=== PATIENT | male | born 1985 | race Native Hawaiian/Other Pacific Islander ===

== ENCOUNTER 2018-12-11 11:38 | Emergency (ER) | payer BC ==
[2018-12-11 11:48] VITALS: BMI 23.7
[2018-12-11 11:50] VITALS: BP 116/78; RESP 16; TEMP 98.1
--- NOTE | 2018-12-11 13:40 | RAD ---
Date of service: 12/11/2018 PROCEDURE: Radiographs of the chest and bilateral ribs HISTORY: fall, pain to ribs COMPARISON: None available. TECHNIQUE: Frontal radiograph of the chest and multiple oblique radiographs of the bilateral ribs were obtained. 5 views obtained. FINDINGS: RIGHT RIBS: No fracture or focal lesion visualized. LEFT RIBS: No fracture or focal lesion visualized. LUNGS: No acute pulmonary disease identified bilaterally. PLEURA: No pneumothorax or pleural fluid. CARDIOVASCULAR: Normal cardiac size. No pulmonary vascular congestion. No aortic atherosclerotic calcification present OTHER FINDINGS: Trace emphysema is question at the mid left chest wall soft tissues. Clinically correlate. No retained radiodense foreign body identified. IMPRESSION: Unremarkable radiographs of the chest and bilateral ribs. Questionable trace left chest wall emphysema. No rib fracture.
--- NOTE | 2018-12-11 14:05 | ED PDOC ---
HPI: Trauma/Fall - HPI Time Seen by Provider: 12/11/18 12:01 Chief Complaint (Nursing): Trauma Chief Complaint (Provider): fall/ left rib cage History Per: Patient History/Exam Limitations: no limitations Onset/Duration Of Symptoms: Hrs Injury Occurred (Timing): Today @ (11:00) Location Of Injury: Left: Chest (left sided rib cage pain) Severity: Moderate Pain Scale Rating Of: 7 Additional History Per: Patient Additional Complaint(s): 33 year old male with no medical history presents to the ED c/o left sided rib cage pain falling while playing tennis. Patient states he was turning to left and slipped landing on left side of the body. Pain is worse with movement to left rib cage. Denies pain to left shoulder or arm. Patient reports difficulty with deep inspiration He states he took 2 advils at 11:15a prior to arrival. - Fall Fall:Prior To Injury: Slipped Past Medical History Reviewed: Historical Data, Nursing Documentation, Vital Signs Vital Signs: Last Vital Signs Temp 98.1 F 12/11/18 11:48 Pulse 74 12/11/18 11:48 Resp 16 12/11/18 11:48 BP 116/78 12/11/18 11:48 Pulse Ox 97 12/11/18 11:48 Primary Care Provider: Eamon Rudd - Medical History PMH: No Chronic Diseases - Surgical History Surgical History: No Surg Hx - Family History Family History: States: Unknown Family Hx - Living Arrangements Living Arrangements: With Family - Social History Alcohol: None Drugs: Denies - Home Medications Home Medications: Ambulatory Orders Medication Instructions Recorded Cyclobenzaprine [Cyclobenzaprine 10 mg PO Q8H PRN #10 tab 12/11/18 HCl] Ibuprofen [Motrin Tab] 800 mg PO Q8H PRN #30 tab 12/11/18 Lidocaine 5% [Lidoderm] 1 ea TD Q12H PRN #10 patch 12/11/18 - Allergies Allergies/Adverse Reactions: Allergies Allergy/AdvReac Type Severity Reaction Status Date / Time No Known Allergies Allergy Verified 12/11/18 12:38 Review of Systems ROS Statement: Except As Marked, All Systems Reviewed And Found Negative Constitutional: Negative for: Fever, Chills, Sweats, Weakness, Malaise Cardiovascular: Positive for: Chest Pain. Negative for: Palpitations, Light Headedness Respiratory: Positive for: Shortness of Breath (pain with deep inspiration ). Negative for: SOB with Exertion, Wheezing Gastrointestinal: Negative for: Nausea, Vomiting, Abdominal Pain Musculoskeletal: Positive for: Other (left rib cage pain, worse with movement. ) Physical Exam - Reviewed Nursing Documentation Reviewed: Yes Vital Signs Reviewed: Yes - Physical Exam Appears: Positive for: Well, Non-toxic, No Acute Distress Head Exam: Positive for: ATRAUMATIC, NORMAL INSPECTION, NORMOCEPHALIC Skin: Positive for: Normal Color, Warm, DRY Eye Exam: Positive for: Normal appearance, PERRL ENT: Positive for: Normal ENT Inspection Neck: Positive for: Normal, Painless ROM, Supple Cardiovascular/Chest: Positive for: Regular Rate, Rhythm, Other (negative for bruising to location of point tenderness. ) Respiratory: Positive for: Normal Breath Sounds. Negative for: Accessory Muscle Use, Crackles, Rales, Rhonchi, Respiratory Distress, Plerual Rub Pulses-Radial (L): 2+ Pulses-Radial (R): 2+ Gastrointestinal/Abdominal: Positive for: Normal Exam, Bowel Sounds (normoactive ), Soft. Negative for: Tenderness Back: Positive for: Normal Inspection. Negative for: L CVA Tenderness, R CVA Tenderness Extremity: Positive for: Normal ROM. Negative for: Deformity, Swelling Neurological/Psych: Positive for: Awake, Alert, Normal Tone, Oriented - ECG O2 Sat by Pulse Oximetry: 97 Medical Decision Making Medical Decision Making: --tramadol --rib series with chest 14:00 Clinical findings discussed with patient. Impression: Rib Contusion. Patient g iven non-pharmacological therapies for pain rib cage injuries. Patient given incentive spirometry. rx given for Motrin, flexeril and lidoderm patch. Return to ED precautions given. Patient states understanding and agree with plan. --Patient advised no driving, drinking or operating heavy machinery while taking flexeril. Accession No. : [id number] Patient Name / ID : DANIELE [place] / [id number] Exam Date : 12/11/2018 12:33:35 ( Approved ) Study Comment : Sex / Age : M / 33Y Creator : Dictator : Umair Hoffman MD Manager Acute : Diaphragm Builder : Umair Hoffman MD Approver2 : Report Date : My Comment : Date of service: 12/11/2018 PROCEDURE: Radiographs of the chest and bilateral ribs HISTORY: fall, pain to ribs COMPARISON: None available. TECHNIQUE: Frontal radiograph of the chest and multiple oblique radiographs of the bilateral ribs were obtained. 5 views obtained. FINDINGS: RIGHT RIBS: No fracture or focal lesion visualized. LEFT RIBS: No fracture or focal lesion visualized. LUNGS: No acute pulmonary disease identified bilaterally. PLEURA: No pneumothorax or pleural fluid. CARDIOVASCULAR: Normal cardiac size. No pulmonary vascular congestion. No aortic atherosclerotic calcification present OTHER FINDINGS: Trace emphysema is question at the mid left chest wall soft tissues. Clinically correlate. No retained radiodense foreign body identified. IMPRESSION: Unremarkable radiographs of the chest and bilateral ribs. Questionable trace left chest wall emphysema. No rib fracture. Disposition - Clinical Impression Clinical Impression: Contusion of rib on left side - Patient ED Disposition Is Patient to be Admitted: No Counseled Patient/Family Regarding: Diagnosis - Disposition Disposition: Routine/Home Disposition Time: 14:03 Condition: IMPROVED Prescriptions: Cyclobenzaprine [Cyclobenzaprine HCl] 10 mg PO Q8H PRN #10 tab PRN Reason: Muscle Spasm Ibuprofen [Motrin Tab] 800 mg PO Q8H PRN #30 tab PRN Reason: Pain, Moderate (4-7) Lidocaine 5% [Lidoderm] 1 ea TD Q12H PRN #10 patch PRN Reason: Pain, Moderate (4-7) Instructions: Bruised Rib (DC) Forms: [employer] ([place]) Print Language: [id number] - POA Present On Arrival: None
[2018-12-11 14:34] VITALS: PULSE 80
[2018-12-11 14:36] VITALS: O2SAT 97
== END 2018-12-11 14:08 | disposition home or self-care (01) ==
LOC: H.ER 11:38
DX: S20.212A Contusion of left front wall of thorax, initial encounter (principal); W18.30XA Fall on same level, unspecified, initial encounter; Y93.73 Activity, racquet and hand sports